=== PATIENT | female | born 1975 | race Caucasian/White ===

== ENCOUNTER 2019-02-04 19:23 | Emergency (ER) | payer MEDICAID ==
--- NOTE | 2019-02-04 19:39 | ER Report ---
History and Physical Time Seen By MD: 19:32 Hx. of Stated Complaint: WALKINGUP THE STAIR, HEARD A CRUNCH/SNAP. IS HAVING RIGHT KNEE PAIN HPI/ROS CHIEF COMPLAINT: Right knee pain HISTORY OF PRESENT ILLNESS: This is a 43-year-old female presents to emergency department for right knee pain. Patient states that just prior to arrival, she was walking up some stairs and suddenly felt a pop and severe pain in her right knee. She has no right knee surgeries however she's had several knee injuries. She states that it is painful to walk or move the leg and or knee. CMS is intact. No other injuries. No chest pain or shortness breath. REVIEW OF SYSTEMS: Respiratory: No cough, no dyspnea. Cardiovascular: No chest pain, no palpitations. Gastrointestinal: No vomiting, no abdominal pain. Musculoskeletal: As above. Allergies: Coded Allergies: Penicillins (Verified Allergy, Intermediate, 02/04/19) Past Medical/Surgical History Suárez has a past medical surgical history of wearing glasses, microvascular cardiac disease, cholecystectomy, tubal ligation, multiple missing teeth, left knee surgery. Reviewed Nurses Notes: Yes Constitutional Vital Sign - Last 24 Hours 02/04/19 19:32 Temp 98.1 Pulse 72 Resp 16 B/P (MAP) 109/55 Pulse Ox 97 O2 Delivery Room Air Physical Exam General Appearance: The patient is alert, has no immediate need for airway protection and no current signs of toxicity. Eyes: Pupils equal and round no injection. Respiratory: Chest is non tender, lungs are clear to auscultation. Cardiac: regular rate and rhythm. Gastrointestinal: Abdomen is soft and non tender, no masses, bowel sounds normal. Musculoskeletal: Neck: Neck is supple and non tender. Extremities no appreciable swelling to the right knee however there is pain with suprapatellar palpation, pain with valgus and varus maneuvers, negative anterior and posterior drawer test. She is able to lift the right leg off the bed. Skin: No rashes or lesions. DIFFERENTIAL DIAGNOSIS: After history and physical exam differential diagnosis was considered for contusion, fracture, subluxation, meniscus injury. Medical Decision Making EKG/Imaging Imaging PATIENT NAME: Shobha Wilson : 1975 MR: [id number] V: [id number] EXAM DATE: ORDERING PHYSICIAN: ENRIQUE ROSAS TECHNOLOGIST: Location: [facility] - [place] Patient: Shobha Wilson : 1975 Visit/Account:[id number] Date of Sevice: 02/04/2019 Examination: KNEE 4 VIEW RIGHT Comparison: None. History: right knee pain, felt a pop Findings: No fracture. Alignment and joint spaces are normal. No joint effusion. Soft tissues are unremarkable. IMPRESSION: Negative right knee. Report Dictated By: Ton Alegre MD at 02/04/2019 8:25 PM Report E-Signed By: Ton Alegre MD at 02/04/2019 8:28 PM WSN:[id number] ED Course/Re-evaluation ED Course The patient was admitted to room. A history and physical obtained. Differential diagnoses were considered. X-ray of the right knee was negative for any acute osseous abnormalities. Patient was given 1 g of by mouth Tylenol for her discomfort. She was placed in a knee immobilizer and given crutches, patient tolerated very well. I did recommend following up with Dr. Ramirez, from [facility] for reevaluation. Patient expressed understanding and was discharged home. take Tylenol for pain as she is not able to take ibuprofen. Patient was agreeable with this plan of care and discharged home. Decision to Disposition Date: Feb 04, 2019 Decision to Disposition Time: 20:42 Depart Departure Latest Vital Signs Vital Signs Date Time Temp Pulse Resp B/P (MAP) Pulse Ox O2 Delivery O2 Flow Rate FiO2 02/04/19 19:32 98.1 72 16 109/55 97 Room Air Impression: Primary Impression: Right knee pain Condition: Improved Disposition: HOME OR SELF-CARE Referrals: DARRIUS RAMIREZ MD Patient Instructions: Knee Pain (ED) Additional Instructions: Wear the knee immobilizer for comfort. Use the crutches as needed. I would recommend following up with [facility] for reevaluation if no improvement next 5-7 days. Take Tylenol as needed for pain. You can also use Aspercreme with lidocaine for the knee pain. Drink plenty of water. Get plenty of rest. Genitourinary for any concerns or worsening symptoms. Problem Qualifiers Primary Impression: Right knee pain Chronicity: acute Qualified Codes: M25.561 - Pain in right knee ENRIQUE ROSAS NET MENDER-BC Feb 04, 2019 19:39
[2019-02-04] MEDS ORDERED: ACETAMINOPHEN 500 MG TAB PO ONE (19:45)
[2019-02-04 20:30] VITALS: BP 104/60
--- NOTE | 2019-02-04 20:35 | RADIOLOGY IMAGING REPORT ---
[place] [facility] [place]: Shobha Wilson : 1975 MR: [id number] V: [id number] EXAM DATE: ORDERING PHYSICIAN: ENRIQUE ROSAS TECHNOLOGIST: Location: [facility] [place] Patient: Shobha Wilson : 1975 Visit/Account:[id number] Date of Sevice: 02/04/2019 Examination: KNEE 4 VIEW RIGHT Comparison: None. History: right knee pain, felt a pop Findings: No fracture. Alignment and joint spaces are normal. No joint effusion. Soft tissues are unr emarkable. IMPRESSION: Negative right knee. Report Dictated By: Ton Alegre MD at 02/04/2019 8:25 PM Report E-Signed By: Ton Alegre MD at 02/04/2019 8:28 PM WSN:[id number]
== END 2019-02-04 20:50 | disposition home or self-care (01) ==
LOC: ER 19:40
DX: M25.561 Pain in right knee (principal)
CPT/HCPCS: 73564; 99283; L1830